=== PATIENT | female | born 1995 | race Caucasian/White ===

== ENCOUNTER 2016-09-25 11:32 | Emergency (ER) | payer BC ==
[~2016-09-25] VITALS: Ht 157.5 cm; Wt 69.8 kg
[~2016-09-25 11:32] MED LIST: BCPILLS PO; CETI10TA84 PO; CIPR-255 PO; DOCU100C31 PO; HYDR-5688 PO; INHALER INH; MIRA100T PO; SERT50TA PO
[2016-09-25 11:36] VITALS: TEMP 37.1; Ht 157.5 cm; Wt 69.8 kg
[2016-09-25] MEDS ORDERED: TOPI25TA10 PO (12:22)
[2016-09-25] MEDS ORDERED: ALBU18002 (12:22)
[2016-09-25] MEDS ORDERED: LMS250 PO (12:22)
[2016-09-25] MEDS ORDERED: PHEN10CA3 PO (12:22)
[2016-09-25] MEDS ORDERED: PRAZ1CAP PO (12:22)
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
[2016-09-25 14:43] VITALS: BP 112/72; PULSE 90; O2SAT 100
== END 2016-09-25 14:44 | disposition home or self-care (01) ==
LOC: C.EDB 11:34 → C.EDA 14:44
DX: F41.9 Anxiety disorder, unspecified (principal); J45.909 Unspecified asthma, uncomplicated; F43.10 Post-traumatic stress disorder, unspecified

== ENCOUNTER → 2016-12-04 | Outpatient (CLI) | payer BC ==
[~2016-12-04] MED LIST changes: +ALBU18002; -CIPR-255 PO; -DOCU100C31 PO; -HYDR-5688 PO; -INHALER INH; +LMS250 PO; -MIRA100T PO; +PHEN10CA3 PO; +PRAZ1CAP PO; -SERT50TA PO; +TOPI25TA10 PO
--- NOTE | 2016-12-04 11:11 | DIAGNOSTIC IMAGING REPORT ---
[facility] CLINICAL HISTORY: N39.0 UTI (urinary tract infection)[id number] COMPARISON STUDY: 06/06/2016 FINDINGS: There is scattered stool throughout the colon. There is no pathologic bowel dilatation. There are punctate calcifications within the pelvic basin, likely resulting phleboliths. No renal calculi are visualized. IMPRESSION: 1. No renal calculi are visualized on conventional radiographic imaging 2. No evidence of pathologic bowel dilatation Electronically signed by: Jean Cruz M.D. 12/04/2016 11:09 AM Dictated Date/Time: 12/04/2016 11:08 AM
== END | disposition home or self-care (01) ==
LOC: C.RAD1850 10:59
PROVIDERS: ATTEND Urology
DX: N39.0 Urinary tract infection, site not specified (principal)

== ENCOUNTER → 2017-08-23 | Outpatient (CLI) | payer BC ==
--- NOTE | 2017-08-23 11:26 | DIAGNOSTIC IMAGING REPORT ---
[facility] CLINICAL HISTORY: Urinary tract infection. FINDINGS: 2 AP supine abdominal radiograph is are compared to study dated 12/04/2016 and correlated with abdominal CT dated 05/11/2016. There is a nonobstructed abdominal bowel gas pattern noting mild to moderate colonic fecal retention. There is no radiographic evidence of nephrolithiasis. Tiny phleboliths in the pelvis are unchanged. The bony structures appear intact. IMPRESSION: 1. There is no radiographic evidence of nephrolithiasis. 2. Nonobstructed abdominal bowel gas pattern. Electronically signed by: Ghulam Funk M.D. 08/23/2017 11:24 AM Dictated Date/Time: 08/23/2017 11:17 AM
[2017-08-23 12:25] LABS: BLOOD UREA NITROGEN 14 mg/dl (7-18); CARBON DIOXIDE 28 mmol/L (21-32); CREATININE 0.65 mg/dl (0.60-1.20); GLUCOSE 87 mg/dl (70-99); POTASSIUM 4.2 mmol/L (3.5-5.1); SODIUM 138 mmol/L (136-145)
== END | disposition home or self-care (01) ==
LOC: C.RAD1850 10:33
PROVIDERS: ATTEND Physician Assistant
DX: N39.0 Urinary tract infection, site not specified (principal)